=== PATIENT | male | born 1940 | race Caucasian/White ===

== ENCOUNTER 2024-09-18 12:15 | Inpatient (IN) | payer OTHER, MEDICARE ==
[2024-09-18] VITALS (7 sets, daily range): BP systolic 140–157; BP diastolic 66–70; PULSE 92–93; RESP 14–36; TEMP 37.2–37.252; O2SAT 100
[~2024-09-18] VITALS: Ht 157.5 cm; Wt 61.2 kg
[2024-09-18 12:46] LABS: BASOPHILS % 0.2 % (0.0-2.0); EOSINOPHILS % 0.4 % (0.0-5.0); HEMATOCRIT. 32.0 % (42.0-52.0); HEMOGLOBIN. 10.2 g/dL (14.0-18.0); LYMPHOCYTES % 9.3 % (20.0-50.0); MEAN PLATELET VOLUME 8.9 fl (7.4-10.4); MONOCYTES % 2.4 % (2.0-8.0); NEUTROPHILS % 87.7 % (40.0-76.0); PLATELET 432 x1000/uL (130-400); RED BLOOD CELL COUNT 3.32 mill/uL (4.7-6.1); RED CELL DISTRIBUTION WIDTH 15.9 % (11.6-14.6)
[2024-09-18 13:19] LABS: CREATININE 0.7 mg/dL (0.6-1.3); ETHANOL BLOOD < 10 mg/dL (<10); TROPONIN I HIGH SENSITIVITY 23 ng/L (3.0-53); UREA NITROGEN BLOOD 45 mg/dL (9-23)
[2024-09-18 13:20] LABS: ASPARTATE AMINOTRANSFERASE 23 IU/L (<34); BILIRUBIN DIRECT 0.1 mg/dL (<=3.0); BILIRUBIN TOTAL 0.3 mg/dL (0.1-1.0)
[2024-09-18 13:21] LABS: PROTEIN TOTAL 7.1 g/dL (6.0-8.3)
[2024-09-18] MEDS: SODIUM CHLORIDE 0.9% 1,000 ML IV ONE ×2 (13:21→13:49)
[2024-09-18] MEDS: IPRATROPIUM BROMIDE (0.02%) 0.5MG/2.5ML NEB HHN NR (13:44)
[2024-09-18] MEDS: ALBUTEROL (0.083%) 2.5MG/3ML NEB HHN NR (13:44)
[2024-09-18] MEDS: CEFTRIAXONE 1GM/50ML 50 ML IV NR (13:48)
[2024-09-18 14:35] LABS: BG BASE EXCESS -0.8 mmol/L (-2.0-3.0); BG CARBOXYHEMOGLOBIN 0.8 % (0.5-1.5); BG DEOXYHEMOGLOBIN 17.7 % (0.0-5.0); BG FLOW(L/min) 15.00 L/min; BG FRACTION INSPIRED OXYGEN 100; BG HCO3 ACT 22.5 mmol/L (21.0-28.0); BG METHEMOGLOBIN 0.3 % (0.5-1.5); BG OXYGEN SATURATION 82.1 % (94.0-98.0); BG OXYHEMOGLOBIN 81.2 % (94.0-98.0); BG PCO2 32.5 mmHg (35.0-48.0); BG PH 7.458 (7.350-7.450); BG PO2 47.9 mmHg (83.0-108.0); BG SAMPLE SITE RIGHT BRACHIAL; BG TOTAL HEMOGLOBIN 10.5 g/dL (13.5-17.5); BG VENT MODE MASK - NRB
[2024-09-18 15:36] LABS: TROPONIN I HIGH SENSITIVITY 35 ng/L (3.0-53)
[2024-09-18] MEDS: VANCOMYCIN 1G PREMIX 200 ML IV NR (16:08)
[2024-09-18] MEDS ORDERED: IOHEXOL-350 100 ML BOTTLE ONE (16:24)
[2024-09-18] MEDS: DOXYCYCLINE 100MG/100ML 100 ML IV SCH (16:53)
[2024-09-18 17:55] LABS: INR 1.1
[2024-09-18] MEDS ORDERED: IPRATROPIUM/ALBUTEROL 0.5-3(2.5)MG/3ML NEB HHN PRN (20:45)
[2024-09-18] MEDS ORDERED: DOCUSATE SODIUM 100MG CAPSULE PO PRN (20:45)
[2024-09-18] MEDS ORDERED: ONDANSETRON HCL 4MG/2ML INJ IV PRN (20:45)
[2024-09-18] MEDS ORDERED: MAGNESIUM/ALUMINUM HYDROXIDE/SIMETHICONE 30ML UDC PO PRN (20:45)
[2024-09-18] MEDS ORDERED: HYDROCODONE/ACETAMINOPHEN 5/325MG TABLET PO PRN (20:45)
[2024-09-18] MEDS: BLOOD SUGAR DIAGNOSTIC STRIP TEST SCH (21:00)
[2024-09-18] MEDS ORDERED: NALOXONE HCL 0.4MG/ML VIAL IV PRN (21:00)
[2024-09-18] MEDS: INSULIN LISPRO 100 UNITS/ML SUBCUT SCH (21:00)
[2024-09-18] MEDS: AMLODIPINE 10MG TABLET PO SCH (22:44)
[2024-09-18] MEDS: ENOXAPARIN 40MG/0.4ML SYR SUBCUT SCH (22:45)
[2024-09-19] VITALS (19 sets, daily range): BP systolic 112–161; BP diastolic 57–124; PULSE 89–99; RESP 21–40; TEMP 36.6–37.1; O2SAT 93–100
[2024-09-19 01:52] LABS: BG BASE EXCESS 0.5 mmol/L (-2.0-3.0); BG CARBOXYHEMOGLOBIN 0.5 % (0.5-1.5); BG DEOXYHEMOGLOBIN 0.7 % (0.0-5.0); BG FRACTION INSPIRED OXYGEN 100; BG HCO3 ACT 24.2 mmol/L (21.0-28.0); BG METHEMOGLOBIN 0.1 % (0.5-1.5); BG OXYGEN SATURATION 99.3 % (94.0-98.0); BG OXYHEMOGLOBIN 98.7 % (94.0-98.0); BG PCO2 34.9 mmHg (35.0-48.0); BG PH 7.458 (7.350-7.450); BG PO2 188.5 mmHg (83.0-108.0); BG SAMPLE SITE LEFT RADIAL; BG TOTAL HEMOGLOBIN 9.5 g/dL (13.5-17.5); BG TOTAL RESPIRATORY RATE 30 b/min; BG VENT MODE MASK - BIPAP; BG VENT RATE 16.0 set
[2024-09-19 03:24] LABS: CLARITY URINE CLEAR (CLEAR); COLOR URINE YELLOW (YELLOW); GLUCOSE URINE NEGATIVE (NEGATIVE); KETONES URINE TRACE (NEGATIVE); LEUKOCYTE ESTERASE URINE NEGATIVE (NEGATIVE); NITRITE URINE NEGATIVE (NEGATIVE); OCCULT BLOOD URINE NEGATIVE (NEGATIVE); PH URINE 6.0 (4.5-8.0); PROTEIN URINE 1+ (NEGATIVE); SPECIFIC GRAVITY URINE 1.067 (1.005-1.030); UROBILINOGEN URINE 0.2 E.U./dL (0.2-1.0)
[2024-09-19 03:25] LABS: *AMPHETAMINES SCREEN URINE NEGATIVE (NEGATIVE); *BARBITURATES SCREEN URINE NEGATIVE (NEGATIVE); *BENZODIAZEPINES SCREEN URINE NEGATIVE (NEGATIVE); *COCAINE SCREEN URINE NEGATIVE (NEGATIVE); METHADONE URINE SCREEN NEGATIVE (NEGATIVE); OPIATES URINE SCREEN NEGATIVE (NEGATIVE)
[2024-09-19 03:26] LABS: CANNABINOID URINE SCREEN NEGATIVE (NEGATIVE); ECSTASY MDMA SCREEN URINE NEGATIVE (NEGATIVE); PHENCYCLIDINE URINE SCREEN NEGATIVE (NEGATIVE)
[2024-09-19 04:45] LABS: RBC URINE 0-2 /hpf (0-2); WBC URINE 0-2 /hpf (0-2)
[2024-09-19 04:46] LABS: BACTERIA URINE NONE SEEN; SQUAMOUS EPITHELIAL CELL URINE NONE SEEN /lpf (RARE/1+)
[2024-09-19 06:07] LABS: TROPONIN I HIGH SENSITIVITY 39 ng/L (3.0-53)
[2024-09-19 06:13] LABS: T4 FREE 0.94 ng/dL (0.89-1.76)
[2024-09-19 06:14] LABS: CREATININE 0.5 mg/dL (0.6-1.3); TRIGLYCERIDE 74 mg/dL (0-150)
[2024-09-19 06:15] LABS: LDL CHOLESTEROL 26 mg/dL (5-100); UREA NITROGEN BLOOD 29 mg/dL (9-23)
[2024-09-19 06:16] LABS: ASPARTATE AMINOTRANSFERASE 19 IU/L (<34); BILIRUBIN DIRECT 0.1 mg/dL (<=3.0); PHOSPHORUS 3.9 mg/dL (2.5-4.9)
[2024-09-19 06:17] LABS: BILIRUBIN TOTAL 0.3 mg/dL (0.1-1.0); PROTEIN TOTAL 6.3 g/dL (6.0-8.3)
[2024-09-19 06:19] LABS: BASOPHILS % 0.1 % (0.0-2.0); EOSINOPHILS % 0.3 % (0.0-5.0); HEMATOCRIT. 27.8 % (42.0-52.0); HEMOGLOBIN. 9.3 g/dL (14.0-18.0); LYMPHOCYTES % 10.2 % (20.0-50.0); MEAN PLATELET VOLUME 8.3 fl (7.4-10.4); MONOCYTES % 2.3 % (2.0-8.0); NEUTROPHILS % 87.1 % (40.0-76.0); PLATELET 397 x1000/uL (130-400); RED BLOOD CELL COUNT 3.00 mill/uL (4.7-6.1); RED CELL DISTRIBUTION WIDTH 15.2 % (11.6-14.6)
[2024-09-19] MEDS: LACTATED RINGERS 1,000 ML IV SCH (08:49)
[2024-09-19] MEDS: POTASSIUM CHLORIDE 20MEQ TABLET SR PO PRN (09:37)
[2024-09-19] MEDS: ACETAMINOPHEN 325MG TABLET PO PRN (10:31)
[2024-09-19] MEDS ORDERED: TAMS-54 PO (12:02)
[2024-09-19] MEDS ORDERED: AMAN100C18 MT (12:02)
[2024-09-19] MEDS ORDERED: CARB1CAP5 PO (12:02)
[2024-09-19] MEDS ORDERED: FINA5TAB11 PO (12:02)
[2024-09-19] MEDS ORDERED: METF-1547 PO (12:02)
[2024-09-19] MEDS ORDERED: PANT40TA51 PO (12:02)
[2024-09-19] MEDS ORDERED: AMLO2.5T45 PO (12:02)
[2024-09-19] MEDS ORDERED: TROS20TA3 PO (12:02)
[2024-09-19] MEDS ORDERED: ENTA200T5 PO (12:02)
[2024-09-19] MEDS ORDERED: SODI100047 PO (12:02)
[2024-09-19] MEDS ORDERED: ATOR40TA70 PO (12:02)
[2024-09-19] MEDS ORDERED: QUET25TA PO (12:02)
[2024-09-19] MEDS: PANTOPRAZOLE SODIUM 40 MG/VIAL IV SCH (12:09)
[2024-09-19] MEDS: CEFTRIAXONE 1GM/50ML 50 ML IV SCH (12:09)
[2024-09-19] MEDS: KCL 20MEQ/100ML PREMIX 100 ML IV SCH (12:10)
[2024-09-19] MEDS: BUDESONIDE 0.5MG/2ML NEB HHN SCH (13:01)
[2024-09-19] MEDS: IPRATROPIUM/ALBUTEROL 0.5-3(2.5)MG/3ML NEB HHN SCH (13:01)
[2024-09-19] MEDS: CLOPIDOGREL 75MG TABLET PO SCH (14:08)
[2024-09-19] MEDS: ASPIRIN 81MG TABLET PO SCH (14:08)
[2024-09-19] MEDS: AZITHROMYCIN 500MG/250ML 250 ML IV SCH (14:09)
[2024-09-19] MEDS: DEXT 5% WATER + KCL 20MEQ/L 1,000 ML IV SCH (14:09)
[2024-09-19 14:13] LABS: BG BASE EXCESS 1.9 mmol/L (-2.0-3.0); BG CARBOXYHEMOGLOBIN 0.3 % (0.5-1.5); BG DEOXYHEMOGLOBIN 1.2 % (0.0-5.0); BG FRACTION INSPIRED OXYGEN 90; BG HCO3 ACT 24.4 mmol/L (21.0-28.0); BG METHEMOGLOBIN 0.3 % (0.5-1.5); BG OXYGEN SATURATION 98.8 % (94.0-98.0); BG OXYHEMOGLOBIN 98.2 % (94.0-98.0); BG PCO2 31.0 mmHg (35.0-48.0); BG PH 7.514 (7.350-7.450); BG PO2 124.9 mmHg (83.0-108.0); BG SAMPLE SITE LEFT RADIAL; BG TOTAL HEMOGLOBIN 10.4 g/dL (13.5-17.5); BG TOTAL RESPIRATORY RATE 25 b/min; BG VENT MODE MASK - BIPAP; BG VENT RATE 16.0 set
[2024-09-19] MEDS ORDERED: CARBIDOPA/LEVODOPA 25/100MG TABLET CR PO SCH (17:00)
[2024-09-19] MEDS: METFORMIN HCL 500MG TABLET PO SCH (18:06)
[2024-09-19 19:18] LABS: CREATININE 0.5 mg/dL (0.6-1.3); UREA NITROGEN BLOOD 26 mg/dL (9-23)
[2024-09-19] MEDS: DEXTROSE 5% WATER 1,000 ML IV SCH (20:10)
[2024-09-19] MEDS: ATORVASTATIN CALCIUM 40MG TABLET PO SCH (20:40)
[2024-09-19] MEDS: AMANTADINE 100MG CAPSULE PO SCH (20:41)
[2024-09-19] MEDS: CARBIDOPA PO SCH (20:42)
[2024-09-19] MEDS: LEVODOPA PO SCH (20:42)
[2024-09-19] MEDS ORDERED: SODIUM CHLORIDE 1000MG TABLET PO SCH (21:00)
[2024-09-20] VITALS (101 sets, daily range): BP systolic 82–154; BP diastolic 39–84; PULSE 71–127; RESP 13–37; TEMP 37.3–37.5; O2SAT 86–100
[2024-09-20] MEDS: CEFEPIME 2GM/100ML 100 ML IV SCH
[2024-09-20] MEDS: PROPOFOL 10MG/ML 100ML 100 ML IV PRN (00:30)
[2024-09-20] MEDS: NOREPINEPHRINE 8MG/250ML PMX 250 ML IV PRN (01:00)
[2024-09-20] MEDS ORDERED: FENTANYL 2500MCG/250ML PMX 250 ML IV PRN (01:30)
[2024-09-20 01:55] LABS: BG BASE EXCESS -1.0 mmol/L (-2.0-3.0); BG CARBOXYHEMOGLOBIN 0.4 % (0.5-1.5); BG DEOXYHEMOGLOBIN 4.9 % (0.0-5.0); BG FRACTION INSPIRED OXYGEN 100; BG HCO3 ACT 22.8 mmol/L (21.0-28.0); BG METHEMOGLOBIN 0.0 % (0.5-1.5); BG OXYGEN SATURATION 95.1 % (94.0-98.0); BG OXYHEMOGLOBIN 94.7 % (94.0-98.0); BG PCO2 34.0 mmHg (35.0-48.0); BG PEEP (cmH2O) 5.0 cmH2O; BG PH 7.444 (7.350-7.450); BG PO2 81.2 mmHg (83.0-108.0); BG SAMPLE SITE RIGHT BRACHIAL; BG TIDAL VOLUME(mL) 450.0 mL; BG TOTAL HEMOGLOBIN 9.3 g/dL (13.5-17.5); BG TOTAL RESPIRATORY RATE 34 b/min; BG VENT MODE VENT - AC; BG VENT RATE 18.0 set
[2024-09-20] MEDS: MORPHINE SULFATE 2 MG/ML INJ (NOT FOR IM USE) IV SCH (02:23)
[2024-09-20] MEDS: FENTANYL CITRATE 2,500 MCG in SODIUM CHLORIDE 0.9% 200 ML IV PRN (02:25)
[2024-09-20] MEDS: INSULIN LISPRO 100 UNITS/ML SUBCUT SCH (03:00)
[2024-09-20] MEDS: BLOOD SUGAR DIAGNOSTIC STRIP TEST SCH (03:00)
[2024-09-20] MEDS: PHENYLEPHRINE 50MG/250ML PMX 250 ML IV PRN (05:18)
[2024-09-20 05:19] LABS: BASOPHILS % 0.1 % (0.0-2.0); EOSINOPHILS % 0.8 % (0.0-5.0); HEMATOCRIT. 25.9 % (42.0-52.0); HEMOGLOBIN. 8.7 g/dL (14.0-18.0); LYMPHOCYTES % 10.2 % (20.0-50.0); MEAN PLATELET VOLUME 8.3 fl (7.4-10.4); MONOCYTES % 2.8 % (2.0-8.0); NEUTROPHILS % 86.1 % (40.0-76.0); PLATELET 413 x1000/uL (130-400); RED BLOOD CELL COUNT 2.79 mill/uL (4.7-6.1); RED CELL DISTRIBUTION WIDTH 15.4 % (11.6-14.6)
[2024-09-20 05:27] LABS: CREATININE 0.6 mg/dL (0.6-1.3)
[2024-09-20 05:28] LABS: LDL CHOLESTEROL 28 mg/dL (5-100); TRIGLYCERIDE 94 mg/dL (0-150); TROPONIN I HIGH SENSITIVITY 34 ng/L (3.0-53); UREA NITROGEN BLOOD 29 mg/dL (9-23)
[2024-09-20 05:29] LABS: ASPARTATE AMINOTRANSFERASE 16 IU/L (<34); PROTEIN TOTAL 5.7 g/dL (6.0-8.3)
[2024-09-20 05:30] LABS: BILIRUBIN DIRECT < 0.1 mg/dL (<=3.0); BILIRUBIN TOTAL 0.3 mg/dL (0.1-1.0); PHOSPHORUS 3.2 mg/dL (2.5-4.9)
[2024-09-20] MEDS: MIDAZOLAM 100MG/100ML PMX 100 ML IV PRN (07:14)
[2024-09-20] MEDS: KCL 20MEQ/100ML PREMIX 100 ML IV SCH (09:16)
[2024-09-20] MEDS: METHYLPREDNISOLONE SOD SUCC 40MG/ML (ACT-O-VIAL) IV SCH (09:17)
[2024-09-20] MEDS: ENTACAPONE 200MG TABLET PO SCH (09:39)
[2024-09-20] MEDS: FINASTERIDE 5MG TABLET PO SCH (09:39)
[2024-09-20] MEDS: QUETIAPINE FUMARATE 25MG TABLET PO SCH (09:40)
[2024-09-20] MEDS: TAMSULOSIN HCL 0.4MG SR CAPSULE PO SCH (09:40)
[2024-09-20 10:04] LABS: BG BASE EXCESS 0.4 mmol/L (-2.0-3.0); BG CARBOXYHEMOGLOBIN 0.3 % (0.5-1.5); BG DEOXYHEMOGLOBIN 0.9 % (0.0-5.0); BG FRACTION INSPIRED OXYGEN 100; BG HCO3 ACT 23.9 mmol/L (21.0-28.0); BG METHEMOGLOBIN 0.3 % (0.5-1.5); BG OXYGEN SATURATION 99.1 % (94.0-98.0); BG OXYHEMOGLOBIN 98.5 % (94.0-98.0); BG PCO2 33.5 mmHg (35.0-48.0); BG PEEP (cmH2O) 5.0 cmH2O; BG PH 7.471 (7.350-7.450); BG PO2 150.8 mmHg (83.0-108.0); BG SAMPLE SITE RIGHT RADIAL; BG TIDAL VOLUME(mL) 450.0 mL; BG TOTAL HEMOGLOBIN 8.3 g/dL (13.5-17.5); BG VENT MODE VENT - AC; BG VENT RATE 18.0 set
[2024-09-20] MEDS: CARBIDOPA/LEVODOPA 25/100MG TABLET GT SCH (21:07)
[2024-09-20] MEDS: ONDANSETRON HCL 4MG/2ML INJ IV PRN (21:12)
[2024-09-21] VITALS (104 sets, daily range): BP systolic 102–134; BP diastolic 49–102; PULSE 52–98; RESP 7–26; TEMP 36.7–37.6; O2SAT 89–100
[2024-09-21] MEDS: CEFEPIME 2GM/100ML 100 ML IV SCH (01:53)
[2024-09-21] MEDS: PROPOFOL 10MG/ML 100ML 100 ML IV PRN (02:42)
[2024-09-21 06:22] LABS: PLATELET 372 x1000/uL (130-400); RED BLOOD CELL COUNT 2.21 mill/uL (4.7-6.1); RED CELL DISTRIBUTION WIDTH 16.0 % (11.6-14.6)
[2024-09-21 07:23] LABS: CREATININE 0.8 mg/dL (0.6-1.3); TRIGLYCERIDE 113 mg/dL (0-150); UREA NITROGEN BLOOD 23 mg/dL (9-23)
[2024-09-21 07:25] LABS: PHOSPHORUS 2.7 mg/dL (2.5-4.9)
[2024-09-21] MEDS: INSULIN LISPRO 100 UNITS/ML SUBCUT SCH ×2 (09:00→12:56)
[2024-09-21] MEDS ORDERED: DEXTROSE 50% WATER 50ML SYRINGE IV PRN (09:45)
[2024-09-21 09:46] LABS: BG BASE EXCESS -1.5 mmol/L (-2.0-3.0); BG CARBOXYHEMOGLOBIN 0.2 % (0.5-1.5); BG DEOXYHEMOGLOBIN 12.1 % (0.0-5.0); BG FRACTION INSPIRED OXYGEN 60; BG HCO3 ACT 24.7 mmol/L (21.0-28.0); BG METHEMOGLOBIN 0.3 % (0.5-1.5); BG OXYGEN SATURATION 87.8 % (94.0-98.0); BG OXYHEMOGLOBIN 87.4 % (94.0-98.0); BG PCO2 48.8 mmHg (35.0-48.0); BG PEEP (cmH2O) 5.0 cmH2O; BG PH 7.322 (7.350-7.450); BG PIP 12.0 cmH2O; BG PO2 61.0 mmHg (83.0-108.0); BG SAMPLE SITE RIGHT RADIAL; BG TOTAL HEMOGLOBIN 9.0 g/dL (13.5-17.5); BG VENT MODE AC/PC; BG VENT RATE 18.0 set
[2024-09-21] MEDS: BLOOD SUGAR DIAGNOSTIC STRIP TEST SCH (11:30)
[2024-09-21] MEDS: MIDODRINE HCL 5MG TABLET PO SCH (14:00)
[2024-09-22] VITALS (104 sets, daily range): BP systolic 108–184; BP diastolic 51–88; PULSE 72–100; RESP 9–34; TEMP 36.7–37.3; O2SAT 92–100
[2024-09-22] MEDS: PROPOFOL 10MG/ML 100ML 100 ML IV SCH (04:12)
[2024-09-22 05:51] LABS: TRIGLYCERIDE 124 mg/dL (0-150); UREA NITROGEN BLOOD 16 mg/dL (9-23)
[2024-09-22 06:20] LABS: CREATININE 0.4 mg/dL (0.6-1.3)
[2024-09-22 10:33] LABS: BG BASE EXCESS -1.4 mmol/L (-2.0-3.0); BG CARBOXYHEMOGLOBIN 0.4 % (0.5-1.5); BG DEOXYHEMOGLOBIN 1.9 % (0.0-5.0); BG FRACTION INSPIRED OXYGEN 70; BG HCO3 ACT 25.1 mmol/L (21.0-28.0); BG METHEMOGLOBIN 0.0 % (0.5-1.5); BG OXYGEN SATURATION 98.1 % (94.0-98.0); BG OXYHEMOGLOBIN 97.7 % (94.0-98.0); BG PCO2 51.0 mmHg (35.0-48.0); BG PEEP (cmH2O) 10.0 cmH2O; BG PH 7.310 (7.350-7.450); BG PO2 108.7 mmHg (83.0-108.0); BG SAMPLE SITE RIGHT RADIAL; BG TOTAL HEMOGLOBIN 9.9 g/dL (13.5-17.5); BG VENT MODE VENT - P/C; BG VENT RATE 18.0 set
[2024-09-22] MEDS ORDERED: FENTANYL 2500MCG/250ML PMX 250 ML IV PRN (19:15)
[2024-09-22] MEDS: HYDRALAZINE 20MG/ML VIAL IV PRN (23:05)
[2024-09-23] VITALS (100 sets, daily range): BP systolic 100–160; BP diastolic 50–101; PULSE 71–98; RESP 10–30; TEMP 36.3–36.7; O2SAT 71–100
[2024-09-23] MEDS: FENTANYL CITRATE 2,500 MCG in SODIUM CHLORIDE 0.9% 200 ML IV PRN (05:31)
[2024-09-23 05:40] LABS: HEMATOCRIT. 32.6 % (42.0-52.0); HEMOGLOBIN. 10.6 g/dL (14.0-18.0); MEAN PLATELET VOLUME 8.6 fl (7.4-10.4); PLATELET 386 x1000/uL (130-400); RED BLOOD CELL COUNT 3.49 mill/uL (4.7-6.1); RED CELL DISTRIBUTION WIDTH 15.8 % (11.6-14.6)
[2024-09-23] MEDS: PROPOFOL 10MG/ML 100ML 100 ML IV PRN (05:50)
[2024-09-23 05:51] LABS: CREATININE 0.4 mg/dL (0.6-1.3); TRIGLYCERIDE 127 mg/dL (0-150); UREA NITROGEN BLOOD 15 mg/dL (9-23)
[2024-09-23 08:55] LABS: BG BASE EXCESS 0.9 mmol/L (-2.0-3.0); BG CARBOXYHEMOGLOBIN 0.0 % (0.5-1.5); BG DEOXYHEMOGLOBIN 5.0 % (0.0-5.0); BG FRACTION INSPIRED OXYGEN 50; BG HCO3 ACT 26.3 mmol/L (21.0-28.0); BG METHEMOGLOBIN 0.3 % (0.5-1.5); BG OXYGEN SATURATION 95.0 % (94.0-98.0); BG OXYHEMOGLOBIN 94.7 % (94.0-98.0); BG PCO2 45.7 mmHg (35.0-48.0); BG PEEP (cmH2O) 10.0 cmH2O; BG PH 7.378 (7.350-7.450); BG PIP 18.0 cmH2O; BG PO2 72.8 mmHg (83.0-108.0); BG SAMPLE SITE RIGHT RADIAL; BG TOTAL HEMOGLOBIN 10.2 g/dL (13.5-17.5); BG VENT MODE VENT - P/C; BG VENT RATE 18.0 set
[2024-09-23 11:53] LABS: BAND% 7.0 % (1.0-6.0); LYMPHOCYTES % MANUAL 3.0 % (20.0-50.0); NEUTROPHILS % MANUAL 90.0 % (45.0-75.0); PLATELET ESTIMATE NORMAL
[2024-09-23] MEDS: METHYLPREDNISOLONE SOD SUCC 40MG/ML (ACT-O-VIAL) IV SCH (17:19)
[2024-09-24] VITALS (102 sets, daily range): BP systolic 95–160; BP diastolic 48–74; PULSE 75–103; RESP 13–33; TEMP 36.2–37.6; O2SAT 87–100
[2024-09-24] MEDS: PROPOFOL 10MG/ML 100ML 100 ML IV PRN (06:35)
[2024-09-24 07:10] LABS: CREATININE 0.4 mg/dL (0.6-1.3); UREA NITROGEN BLOOD 17 mg/dL (9-23)
[2024-09-24 07:14] LABS: PLATELET 351 x1000/uL (130-400); RED BLOOD CELL COUNT 3.24 mill/uL (4.7-6.1); RED CELL DISTRIBUTION WIDTH 15.3 % (11.6-14.6)
[2024-09-24 08:43] LABS: BG BASE EXCESS 5.0 mmol/L (-2.0-3.0); BG CARBOXYHEMOGLOBIN 0.1 % (0.5-1.5); BG DEOXYHEMOGLOBIN 10.7 % (0.0-5.0); BG FRACTION INSPIRED OXYGEN 50; BG HCO3 ACT 29.3 mmol/L (21.0-28.0); BG METHEMOGLOBIN 0.3 % (0.5-1.5); BG OXYGEN SATURATION 89.3 % (94.0-98.0); BG OXYHEMOGLOBIN 88.9 % (94.0-98.0); BG PCO2 41.9 mmHg (35.0-48.0); BG PEEP (cmH2O) 10.0 cmH2O; BG PH 7.462 (7.350-7.450); BG PO2 53.3 mmHg (83.0-108.0); BG SAMPLE SITE RIGHT BRACHIAL; BG TOTAL HEMOGLOBIN 11.0 g/dL (13.5-17.5); BG VENT MODE VENT - AC/PC; BG VENT RATE 18.0 set
[2024-09-24] MEDS: FUROSEMIDE 40MG/4ML VIAL IVP NR (13:22)
[2024-09-24 17:31] LABS: BG BASE EXCESS 8.4 mmol/L (-2.0-3.0); BG CARBOXYHEMOGLOBIN 0.3 % (0.5-1.5); BG DEOXYHEMOGLOBIN 4.6 % (0.0-5.0); BG FRACTION INSPIRED OXYGEN 70; BG HCO3 ACT 33.9 mmol/L (21.0-28.0); BG METHEMOGLOBIN 0.3 % (0.5-1.5); BG OXYGEN SATURATION 95.4 % (94.0-98.0); BG OXYHEMOGLOBIN 94.8 % (94.0-98.0); BG PCO2 51.8 mmHg (35.0-48.0); BG PEEP (cmH2O) 10.0 cmH2O; BG PH 7.434 (7.350-7.450); BG PIP 18.0 cmH2O; BG PO2 75.9 mmHg (83.0-108.0); BG SAMPLE SITE RIGHT RADIAL; BG TOTAL HEMOGLOBIN 11.3 g/dL (13.5-17.5); BG VENT MODE VENT - P/C; BG VENT RATE 18.0 set
[2024-09-25] VITALS (107 sets, daily range): BP systolic 93–141; BP diastolic 45–93; PULSE 71–88; RESP 13–39; TEMP 36.6–37.4; O2SAT 87–100
[2024-09-25 06:09] LABS: BASOPHILS % 0.1 % (0.0-2.0); EOSINOPHILS % 0.5 % (0.0-5.0); HEMATOCRIT. 28.6 % (42.0-52.0); HEMOGLOBIN. 9.3 g/dL (14.0-18.0); LYMPHOCYTES % 10.0 % (20.0-50.0); MEAN PLATELET VOLUME 8.3 fl (7.4-10.4); MONOCYTES % 1.7 % (2.0-8.0); NEUTROPHILS % 87.7 % (40.0-76.0); PLATELET 278 x1000/uL (130-400); RED BLOOD CELL COUNT 3.12 mill/uL (4.7-6.1); RED CELL DISTRIBUTION WIDTH 14.9 % (11.6-14.6)
[2024-09-25 06:39] LABS: CREATININE 0.4 mg/dL (0.6-1.3); TRIGLYCERIDE 86 mg/dL (0-150); UREA NITROGEN BLOOD 18 mg/dL (9-23)
[2024-09-25 06:41] LABS: ASPARTATE AMINOTRANSFERASE 10 IU/L (<34); BILIRUBIN TOTAL 0.3 mg/dL (0.1-1.0); PROTEIN TOTAL 5.2 g/dL (6.0-8.3)
[2024-09-25 06:52] LABS: INR 1.2
[2024-09-25 09:04] LABS: BG BASE EXCESS 4.0 mmol/L (-2.0-3.0); BG CARBOXYHEMOGLOBIN 1.0 % (0.5-1.5); BG DEOXYHEMOGLOBIN 6.7 % (0.0-5.0); BG FRACTION INSPIRED OXYGEN 70; BG HCO3 ACT 28.9 mmol/L (21.0-28.0); BG METHEMOGLOBIN 0.1 % (0.5-1.5); BG OXYGEN SATURATION 93.2 % (94.0-98.0); BG OXYHEMOGLOBIN 92.2 % (94.0-98.0); BG PCO2 44.7 mmHg (35.0-48.0); BG PEEP (cmH2O) 10.0 cmH2O; BG PH 7.428 (7.350-7.450); BG PIP 18.0 cmH2O; BG PO2 65.4 mmHg (83.0-108.0); BG SAMPLE SITE RIGHT BRACHIAL; BG TOTAL HEMOGLOBIN 11.2 g/dL (13.5-17.5); BG VENT MODE VENT - P/C; BG VENT RATE 18.0 set
[2024-09-25] MEDS: PROPOFOL 10MG/ML 100ML 100 ML IV PRN (11:47)
[2024-09-25] MEDS: FENTANYL 2500MCG/250ML PMX 250 ML IV PRN (11:47)
[2024-09-25 18:59] LABS: BG BASE EXCESS 5.8 mmol/L (-2.0-3.0); BG CARBOXYHEMOGLOBIN 0.4 % (0.5-1.5); BG DEOXYHEMOGLOBIN 10.0 % (0.0-5.0); BG FRACTION INSPIRED OXYGEN 50; BG HCO3 ACT 31.5 mmol/L (21.0-28.0); BG METHEMOGLOBIN 0.0 % (0.5-1.5); BG OXYGEN SATURATION 90.0 % (94.0-98.0); BG OXYHEMOGLOBIN 89.6 % (94.0-98.0); BG PCO2 52.2 mmHg (35.0-48.0); BG PEEP (cmH2O) 8.0 cmH2O; BG PH 7.399 (7.350-7.450); BG PO2 59.4 mmHg (83.0-108.0); BG SAMPLE SITE RIGHT RADIAL; BG TIDAL VOLUME(mL) 450.0 mL; BG TOTAL HEMOGLOBIN 9.9 g/dL (13.5-17.5); BG VENT MODE VENT - AC; BG VENT RATE 12.0 set
[2024-09-26] VITALS (67 sets, daily range): BP systolic 98–138; BP diastolic 45–100; PULSE 74–138; RESP 14–23; TEMP 36.6–37.3; O2SAT 89–100
[2024-09-26 06:19] LABS: CREATININE 0.4 mg/dL (0.6-1.3)
[2024-09-26 06:20] LABS: INR 1.2; TRIGLYCERIDE 132 mg/dL (0-150); UREA NITROGEN BLOOD 20 mg/dL (9-23)
[2024-09-26 06:32] LABS: BASOPHILS % 0.1 % (0.0-2.0); EOSINOPHILS % 1.5 % (0.0-5.0); HEMATOCRIT. 27.8 % (42.0-52.0); HEMOGLOBIN. 9.3 g/dL (14.0-18.0); LYMPHOCYTES % 7.3 % (20.0-50.0); MEAN PLATELET VOLUME 8.5 fl (7.4-10.4); MONOCYTES % 1.9 % (2.0-8.0); NEUTROPHILS % 89.2 % (40.0-76.0); PLATELET 243 x1000/uL (130-400); RED BLOOD CELL COUNT 3.00 mill/uL (4.7-6.1); RED CELL DISTRIBUTION WIDTH 14.7 % (11.6-14.6)
[2024-09-26] MEDS ORDERED: PHENYLEPHRINE 50MG/250ML PMX 250 ML IV PRN (09:30)
[2024-09-26] MEDS ORDERED: AMIODARONE HCL 900 MG in DEXT 5% WATER 482 ML IV SCH (09:30)
[2024-09-26] MEDS: AMIODARONE 150MG/100ML D5W 100 ML IV NR (09:50)
[2024-09-26 10:12] LABS: BG BASE EXCESS 4.6 mmol/L (-2.0-3.0); BG CARBOXYHEMOGLOBIN 0.7 % (0.5-1.5); BG DEOXYHEMOGLOBIN 6.7 % (0.0-5.0); BG FRACTION INSPIRED OXYGEN 100; BG HCO3 ACT 31.2 mmol/L (21.0-28.0); BG METHEMOGLOBIN 0.0 % (0.5-1.5); BG OXYGEN SATURATION 93.3 % (94.0-98.0); BG OXYHEMOGLOBIN 92.6 % (94.0-98.0); BG PCO2 55.9 mmHg (35.0-48.0); BG PEEP (cmH2O) 8.0 cmH2O; BG PH 7.365 (7.350-7.450); BG PO2 69.0 mmHg (83.0-108.0); BG SAMPLE SITE RIGHT RADIAL; BG TIDAL VOLUME(mL) 450.0 mL; BG TOTAL HEMOGLOBIN 12.4 g/dL (13.5-17.5); BG VENT MODE VENT - AC; BG VENT RATE 14.0 set
[2024-09-26] MEDS: AMIODARONE 360MG/200ML 200 ML IV ONE (11:00)
[2024-09-26 16:55] LABS: BG BASE EXCESS 3.3 mmol/L (-2.0-3.0); BG CARBOXYHEMOGLOBIN 0.8 % (0.5-1.5); BG DEOXYHEMOGLOBIN 3.4 % (0.0-5.0); BG FRACTION INSPIRED OXYGEN 70; BG HCO3 ACT 28.5 mmol/L (21.0-28.0); BG METHEMOGLOBIN 0.3 % (0.5-1.5); BG OXYGEN SATURATION 96.6 % (94.0-98.0); BG OXYHEMOGLOBIN 95.5 % (94.0-98.0); BG PCO2 46.7 mmHg (35.0-48.0); BG PEEP (cmH2O) 8.0 cmH2O; BG PH 7.404 (7.350-7.450); BG PIP 26.0 cmH2O; BG PO2 83.2 mmHg (83.0-108.0); BG SAMPLE SITE RIGHT RADIAL; BG TOTAL HEMOGLOBIN 10.5 g/dL (13.5-17.5); BG VENT MODE VENT - P/C; BG VENT RATE 18.0 set
[2024-09-26 17:35] LABS: TROPONIN I HIGH SENSITIVITY 14 ng/L (3.0-53)
[2024-09-26] MEDS: AMIODARONE 360MG/200ML 200 ML IV SCH (17:47)
[2024-09-26] MEDS: PROPOFOL 10MG/ML 100ML 100 ML IV PRN (23:07)
[2024-09-27] VITALS (105 sets, daily range): BP systolic 108–169; BP diastolic 55–79; PULSE 72–133; RESP 6–31; TEMP 36.5–36.9; O2SAT 91–100
[2024-09-27 06:24] LABS: HEMATOCRIT. 30.4 % (42.0-52.0); HEMOGLOBIN. 10.1 g/dL (14.0-18.0); MEAN PLATELET VOLUME 8.5 fl (7.4-10.4); PLATELET 262 x1000/uL (130-400); RED BLOOD CELL COUNT 3.31 mill/uL (4.7-6.1); RED CELL DISTRIBUTION WIDTH 14.7 % (11.6-14.6)
[2024-09-27 06:37] LABS: INR 1.1
[2024-09-27 06:42] LABS: CREATININE 0.4 mg/dL (0.6-1.3); UREA NITROGEN BLOOD 20 mg/dL (9-23)
[2024-09-27 06:43] LABS: TROPONIN I HIGH SENSITIVITY 17 ng/L (3.0-53)
[2024-09-27 06:44] LABS: ASPARTATE AMINOTRANSFERASE 23 IU/L (<34); BILIRUBIN DIRECT 0.2 mg/dL (<=3.0); BILIRUBIN TOTAL 0.4 mg/dL (0.1-1.0); PROTEIN TOTAL 5.8 g/dL (6.0-8.3)
[2024-09-27 09:38] LABS: BG BASE EXCESS 4.8 mmol/L (-2.0-3.0); BG CARBOXYHEMOGLOBIN 0.3 % (0.5-1.5); BG DEOXYHEMOGLOBIN 8.6 % (0.0-5.0); BG FRACTION INSPIRED OXYGEN 50; BG HCO3 ACT 29.4 mmol/L (21.0-28.0); BG METHEMOGLOBIN 0.3 % (0.5-1.5); BG OXYGEN SATURATION 91.3 % (94.0-98.0); BG OXYHEMOGLOBIN 90.8 % (94.0-98.0); BG PCO2 43.2 mmHg (35.0-48.0); BG PEEP (cmH2O) 10.0 cmH2O; BG PH 7.450 (7.350-7.450); BG PO2 60.1 mmHg (83.0-108.0); BG SAMPLE SITE RIGHT RADIAL; BG TOTAL HEMOGLOBIN 11.3 g/dL (13.5-17.5); BG VENT MODE VENT - AC/PC; BG VENT RATE 18.0 set
[2024-09-27 10:39] LABS: BAND% 10.0 % (1.0-6.0); LYMPHOCYTES % MANUAL 9.0 % (20.0-50.0); MONOCYTES % MANUAL 1.0 % (2.0-8.0); NEUTROPHILS % MANUAL 80.0 % (45.0-75.0); PLATELET ESTIMATE NORMAL
[2024-09-27] MEDS ORDERED: PROPOFOL 200MG/20ML VIAL IV ONE (12:09)
[2024-09-27] MEDS ORDERED: EPHEDRINE SULFATE 50MG/ML VIAL ONE (12:09)
[2024-09-27] MEDS ORDERED: PROPOFOL 10MG/ML 100ML 100 ML IV SCH (17:15)
[2024-09-27] MEDS: PROPOFOL 10MG/ML 100ML 100 ML IV PRN (18:17)
[2024-09-27] MEDS: AMIODARONE 200MG TABLET PO SCH (22:14)
[2024-09-28] VITALS (102 sets, daily range): BP systolic 85–144; BP diastolic 44–100; PULSE 68–90; RESP 14–42; TEMP 36.3–37.3; O2SAT 84–100
[2024-09-28 06:23] LABS: BASOPHILS % 0.2 % (0.0-2.0); EOSINOPHILS % 1.6 % (0.0-5.0); HEMATOCRIT. 27.7 % (42.0-52.0); HEMOGLOBIN. 9.3 g/dL (14.0-18.0); LYMPHOCYTES % 8.2 % (20.0-50.0); MEAN PLATELET VOLUME 8.6 fl (7.4-10.4); MONOCYTES % 3.3 % (2.0-8.0); NEUTROPHILS % 86.7 % (40.0-76.0); PLATELET 257 x1000/uL (130-400); RED BLOOD CELL COUNT 3.04 mill/uL (4.7-6.1); RED CELL DISTRIBUTION WIDTH 14.7 % (11.6-14.6)
[2024-09-28 06:40] LABS: CREATININE 0.3 mg/dL (0.6-1.3)
[2024-09-28 06:41] LABS: TRIGLYCERIDE 98 mg/dL (0-150); UREA NITROGEN BLOOD 18 mg/dL (9-23)
[2024-09-28 06:42] LABS: ASPARTATE AMINOTRANSFERASE 24 IU/L (<34)
[2024-09-28 06:43] LABS: BILIRUBIN DIRECT 0.3 mg/dL (<=3.0); BILIRUBIN TOTAL 0.4 mg/dL (0.1-1.0); PROTEIN TOTAL 5.4 g/dL (6.0-8.3)
[2024-09-28 09:29] LABS: BG BASE EXCESS 3.2 mmol/L (-2.0-3.0); BG CARBOXYHEMOGLOBIN 1.1 % (0.5-1.5); BG DEOXYHEMOGLOBIN 9.9 % (0.0-5.0); BG FRACTION INSPIRED OXYGEN 50; BG HCO3 ACT 29.0 mmol/L (21.0-28.0); BG METHEMOGLOBIN 0.3 % (0.5-1.5); BG OXYGEN SATURATION 90.0 % (94.0-98.0); BG OXYHEMOGLOBIN 88.7 % (94.0-98.0); BG PCO2 50.8 mmHg (35.0-48.0); BG PEEP (cmH2O) 5.0 cmH2O; BG PH 7.375 (7.350-7.450); BG PO2 58.1 mmHg (83.0-108.0); BG SAMPLE SITE RIGHT RADIAL; BG TOTAL HEMOGLOBIN 9.2 g/dL (13.5-17.5); BG VENT MODE VENT - AC/PC; BG VENT RATE 18.0 set
[2024-09-28] MEDS: CLONIDINE 0.1MG TABLET PO PRN (09:59)
[2024-09-28 18:53] LABS: BG BASE EXCESS 4.6 mmol/L (-2.0-3.0); BG CARBOXYHEMOGLOBIN 0.3 % (0.5-1.5); BG DEOXYHEMOGLOBIN 9.4 % (0.0-5.0); BG FRACTION INSPIRED OXYGEN 70; BG HCO3 ACT 32.6 mmol/L (21.0-28.0); BG METHEMOGLOBIN 0.3 % (0.5-1.5); BG OXYGEN SATURATION 90.5 % (94.0-98.0); BG OXYHEMOGLOBIN 90.0 % (94.0-98.0); BG PCO2 71.3 mmHg (35.0-48.0); BG PEEP (cmH2O) 8.0 cmH2O; BG PH 7.278 (7.350-7.450); BG PO2 65.3 mmHg (83.0-108.0); BG SAMPLE SITE RIGHT BRACHIAL; BG TOTAL HEMOGLOBIN 9.1 g/dL (13.5-17.5); BG VENT MODE VENT - AC/PC; BG VENT RATE 18.0 set
[2024-09-29] VITALS (129 sets, daily range): BP systolic 46–173; BP diastolic 10–95; PULSE 36–176; RESP 3–41; TEMP 36.7–37.7; O2SAT 36–98
[2024-09-29] MEDS: PROPOFOL 10MG/ML 100ML 100 ML IV PRN (05:59)
[2024-09-29] MEDS: FUROSEMIDE 40MG/4ML VIAL IVP SCH (06:52)
[2024-09-29 10:25] LABS: HEMATOCRIT. 27.2 % (42.0-52.0); HEMOGLOBIN. 8.6 g/dL (14.0-18.0); MEAN PLATELET VOLUME 8.0 fl (7.4-10.4); PLATELET 240 x1000/uL (130-400); RED BLOOD CELL COUNT 2.92 mill/uL (4.7-6.1); RED CELL DISTRIBUTION WIDTH 15.2 % (11.6-14.6)
[2024-09-29 10:41] LABS: CREATININE 0.6 mg/dL (0.6-1.3); UREA NITROGEN BLOOD 25 mg/dL (9-23)
[2024-09-29 11:06] LABS: BG BASE EXCESS 0.3 mmol/L (-2.0-3.0); BG CARBOXYHEMOGLOBIN 0.4 % (0.5-1.5); BG DEOXYHEMOGLOBIN 35.9 % (0.0-5.0); BG FRACTION INSPIRED OXYGEN 100; BG HCO3 ACT 31.1 mmol/L (21.0-28.0); BG METHEMOGLOBIN 0.0 % (0.5-1.5); BG OXYGEN SATURATION 64.0 % (94.0-98.0); BG OXYHEMOGLOBIN 63.7 % (94.0-98.0); BG PCO2 97.7 mmHg (35.0-48.0); BG PEEP (cmH2O) 8.0 cmH2O; BG PH 7.121 (7.350-7.450); BG PO2 39.7 mmHg (83.0-108.0); BG SAMPLE SITE RIGHT BRACHIAL; BG TOTAL HEMOGLOBIN 9.7 g/dL (13.5-17.5); BG VENT MODE VENT - P/C; BG VENT RATE 14.0 set
[2024-09-29] MEDS: SODIUM POLYSTYRENE SULFONATE 15 G/60 ML BOT PO NR (11:45)
[2024-09-29 13:56] LABS: BG BASE EXCESS -3.0 mmol/L (-2.0-3.0); BG CARBOXYHEMOGLOBIN 1.1 % (0.5-1.5); BG DEOXYHEMOGLOBIN 26.7 % (0.0-5.0); BG FRACTION INSPIRED OXYGEN 100; BG HCO3 ACT 27.0 mmol/L (21.0-28.0); BG METHEMOGLOBIN 0.1 % (0.5-1.5); BG OXYGEN SATURATION 73.0 % (94.0-98.0); BG OXYHEMOGLOBIN 72.1 % (94.0-98.0); BG PCO2 79.9 mmHg (35.0-48.0); BG PEEP (cmH2O) 12.0 cmH2O; BG PH 7.147 (7.350-7.450); BG PO2 41.4 mmHg (83.0-108.0); BG SAMPLE SITE LEFT RADIAL; BG TOTAL HEMOGLOBIN 10.5 g/dL (13.5-17.5); BG VENT MODE VENT - P/C; BG VENT RATE 24.0 set
[2024-09-29] MEDS: MIDODRINE HCL 5MG TABLET PO SCH (13:57)
[2024-09-29 14:00] LABS: BAND% 10.0 % (1.0-6.0); LYMPHOCYTES % MANUAL 8.0 % (20.0-50.0); MONOCYTES % MANUAL 2.0 % (2.0-8.0); NEUTROPHILS % MANUAL 80.0 % (45.0-75.0); PLATELET ESTIMATE NORMAL
[2024-09-29] MEDS: SODIUM BICARBONATE 8.4% 50MEQ/50ML SYR IV NR (16:11)
[2024-09-29] MEDS: DEXTROSE 50% WATER 50ML SYRINGE IV PRN ×2 (17:33→21:30)
[2024-09-29] MEDS: PHENYLEPHRINE 100 MG in DEXT 5% WATER 240 ML IV PRN (18:10)
[2024-09-29] MEDS: NOREPINEPHRINE 32 MG in DEXT 5% WATER 218 ML IV PRN (18:11)
[2024-09-29] MEDS: SODIUM BICARBONATE 8.4% 50MEQ/50ML SYR IV SCH ×3 (19:05→23:40)
[2024-09-29] MEDS: EPINEPHRINE 10 MG in SODIUM CHLORIDE 0.9% 240 ML IV PRN (19:06)
[2024-09-29] MEDS: DOPAMINE 800MG PREMIX (DOUBLE) 250 ML IV PRN (19:07)
[2024-09-29 19:37] LABS: BG BASE EXCESS 0.4 mmol/L (-2.0-3.0); BG CARBOXYHEMOGLOBIN 0.6 % (0.5-1.5); BG DEOXYHEMOGLOBIN 33.0 % (0.0-5.0); BG FRACTION INSPIRED OXYGEN 100; BG HCO3 ACT 34.7 mmol/L (21.0-28.0); BG METHEMOGLOBIN 0.3 % (0.5-1.5); BG OXYGEN SATURATION 66.7 % (94.0-98.0); BG OXYHEMOGLOBIN 66.1 % (94.0-98.0); BG PCO2 138.4 mmHg (35.0-48.0); BG PEEP (cmH2O) 12.0 cmH2O; BG PH 7.017 (7.350-7.450); BG PO2 40.7 mmHg (83.0-108.0); BG SAMPLE SITE RIGHT RADIAL; BG TOTAL HEMOGLOBIN 11.8 g/dL (13.5-17.5); BG VENT MODE VENT - P/C; BG VENT RATE 30.0 set
[2024-09-29] MEDS: IPRATROPIUM/ALBUTEROL 0.5-3(2.5)MG/3ML NEB HHN SCH (20:00)
[2024-09-29] MEDS: SODIUM BICARBONATE 150 MEQ in DEXTROSE 5% WATER 850 ML IV SCH (20:06)
[2024-09-29] MEDS: HYDROCORTISONE SOD SUCCINATE 100 MG/2 ML VIAL IV SCH (21:42)
[2024-09-29 22:13] LABS: PLATELET 261 x1000/uL (130-400); RED BLOOD CELL COUNT 3.08 mill/uL (4.7-6.1); RED CELL DISTRIBUTION WIDTH 15.7 % (11.6-14.6)
[2024-09-29 22:39] LABS: CREATININE 0.9 mg/dL (0.6-1.3); UREA NITROGEN BLOOD 25 mg/dL (9-23)
[2024-09-29 22:41] LABS: PHOSPHORUS 4.6 mg/dL (2.5-4.9)
[2024-09-29] MEDS ORDERED: DEXT 10% WATER 1,000 ML IV SCH (22:45)
[2024-09-29] MEDS: SODIUM ZIRCONIUM CYCLOSILICATE 10GM/PACKET NG SCH (23:28)
[2024-09-29 23:33] LABS: BG BASE EXCESS -6.4 mmol/L (-2.0-3.0); BG CARBOXYHEMOGLOBIN 0.1 % (0.5-1.5); BG DEOXYHEMOGLOBIN 39.1 % (0.0-5.0); BG FRACTION INSPIRED OXYGEN 100; BG HCO3 ACT 23.8 mmol/L (21.0-28.0); BG METHEMOGLOBIN 0.3 % (0.5-1.5); BG OXYGEN SATURATION 60.7 % (94.0-98.0); BG OXYHEMOGLOBIN 60.5 % (94.0-98.0); BG PCO2 76.0 mmHg (35.0-48.0); BG PEEP (cmH2O) 12.0 cmH2O; BG PH 7.114 (7.350-7.450); BG PO2 35.0 mmHg (83.0-108.0); BG SAMPLE SITE RIGHT RADIAL; BG TOTAL HEMOGLOBIN 10.6 g/dL (13.5-17.5); BG VENT MODE VENT - P/C; BG VENT RATE 30.0 set
[2024-09-29] MEDS ORDERED: EPINEPHRINE 20 MG in SODIUM CHLORIDE 0.9% 480 ML IV PRN (23:45)
[2024-09-30] VITALS (34 sets, daily range): BP systolic 63–159; BP diastolic 43–84; PULSE 73–165; RESP 26–40; TEMP 36.3; O2SAT 76–84
[2024-09-30] MEDS: VASOPRESSIN 20 UNIT in SODIUM CHLORIDE 0.9% 99 ML IV PRN (01:23)
[2024-09-30] MEDS: SODIUM BICARBONATE 8.4% 50MEQ/50ML SYR IV SCH (06:32)
== END 2024-09-30 13:40 | DRG 870 ==
LOC: ER 12:15 → 5EST 15:51 → EDBEDREQSVC 16:02 → EDBEDREQ 16:02 → EDBEDREQTM 16:02 → ENRESERV 17:01 → MICUNO 09-19 23:48
PROVIDERS: ADMIT Family Medicine Adult Medicine; ATTEND Family Medicine Adult Medicine
PROC: 5A09457 Assistance with Respiratory Ventilation, 24-96 Consecutive Hours, Continuous Positive Airway Pressure (ICD-10-PCS; 2024-09-18)
PROC: 5A1955Z Respiratory Ventilation, Greater than 96 Consecutive Hours (ICD-10-PCS; 2024-09-20)
PROC: 0BH17EZ Insertion of Endotracheal Airway into Trachea, Via Natural or Artificial Opening (ICD-10-PCS; 2024-09-20)
PROC: 02HV33Z Insertion of Infusion Device into Superior Vena Cava, Percutaneous Approach (ICD-10-PCS; 2024-09-20)
PROC: B548ZZA Ultrasonography of Superior Vena Cava, Guidance (ICD-10-PCS; 2024-09-20)
PROC: 0DH63UZ Insertion of Feeding Device into Stomach, Percutaneous Approach (ICD-10-PCS; principal; 2024-09-27)
PROC: 5A12012 Performance of Cardiac Output, Single, Manual (ICD-10-PCS; 2024-09-30)
DX: A41.9 Sepsis, unspecified organism (principal); G82.50 Quadriplegia, unspecified; G93.41 Metabolic encephalopathy; J69.0 Pneumonitis due to inhalation of food and vomit; J96.01 Acute respiratory failure with hypoxia; S32.018A Other fracture of first lumbar vertebra, initial encounter for closed fracture; S22.088A Other fracture of T11-T12 vertebra, initial encounter for closed fracture; E87.0 Hyperosmolality and hypernatremia; J90 Pleural effusion, not elsewhere classified; N17.9 Acute kidney failure, unspecified; E46 Unspecified protein-calorie malnutrition; E87.4 Mixed disorder of acid-base balance; I31.39 Other pericardial effusion (noninflammatory); Z99.11 Dependence on respirator [ventilator] status; K22.10 Ulcer of esophagus without bleeding; Z20.822 Contact with and (suspected) exposure to COVID-19; D64.9 Anemia, unspecified; G20.A1 Parkinson's disease without dyskinesia, without mention of fluctuations; K44.9 Diaphragmatic hernia without obstruction or gangrene; E87.8 Other disorders of electrolyte and fluid balance, not elsewhere classified; E11.9 Type 2 diabetes mellitus without complications; Z96.653 Presence of artificial knee joint, bilateral; M47.814 Spondylosis without myelopathy or radiculopathy, thoracic region; M47.816 Spondylosis without myelopathy or radiculopathy, lumbar region; R26.9 Unspecified abnormalities of gait and mobility; E87.6 Hypokalemia; I45.10 Unspecified right bundle-branch block; I10 Essential (primary) hypertension; M81.0 Age-related osteoporosis without current pathological fracture; K29.70 Gastritis, unspecified, without bleeding; N40.0 Benign prostatic hyperplasia without lower urinary tract symptoms; R13.12 Dysphagia, oropharyngeal phase; I46.9 Cardiac arrest, cause unspecified; E83.41 Hypermagnesemia; D75.839 Thrombocytosis, unspecified; E78.5 Hyperlipidemia, unspecified; I48.91 Unspecified atrial fibrillation; I08.0 Rheumatic disorders of both mitral and aortic valves; S30.0XXA Contusion of lower back and pelvis, initial encounter; S20.224A Contusion of middle back wall of thorax, initial encounter; X58.XXXA Exposure to other specified factors, initial encounter; Y93.89 Activity, other specified; Z88.8 Allergy status to other drugs, medicaments and biological substances; Y92.89 Other specified places as the place of occurrence of the external cause; I25.2 Old myocardial infarction; Z88.0 Allergy status to penicillin; Z79.899 Other long term (current) drug therapy; Z79.84 Long term (current) use of oral hypoglycemic drugs; Z78.1 Physical restraint status; Y99.8 Other external cause status; Z68.24 Body mass index [BMI] 24.0-24.9, adult
CPT/HCPCS: 31500; 31720; 36415; 36600; 70496; 70498; 70551; 71045; 71275; 76700; 80048; 80053; 80061; 80076; 80305; 80320; 81003; 82375; 82805; 82962; 83036; 83735; 83880; 84100; 84145; 84295; 84300; 84439; 84478; 84484; 85014; 85018; 85025; 85027; 85379; 86850; 86900; 86920; 87070; 87077; 87106; 87186; 87426; 93005; 93306; 93970; 94002; 94003; 94070; 94640; 94660; 94664; 94760; 97162; 98960; 99291; A4606; J0282; J0360; J0456; J0692; J0696; J1265; J1650; J1720; J1815; J1938; J2270; J2371; J2405; J2470; J2704; J2919; J3010; J3373; J3480; J3490; J7030; J7040; J7050; J7060; J7070; J7626; P9016; Q9967; G0480